=== PATIENT | male | born 1985 | race Two or more races ===

== ENCOUNTER 2021-04-19 03:51 | Emergency (ER) | payer OTHER ==
[2021-04-19] MEDS ORDERED: Bupivacaine 0.5% 10 ML SDV INJECT ONE (04:28)
[2021-04-19] MEDS ORDERED: Lidocaine 1% 10 ML MDV INJECT ONE (04:28)
[2021-04-19] MEDS ORDERED: Lidocaine 1% with EPINEPHrine 1:100,000 20 ML MDV INJECT ONE (04:29)
[2021-04-19] MEDS ORDERED: Penicillin V Potassium 500 MG Tab PO STA (04:31)
--- NOTE | 2021-04-19 04:32 | EDM.PDOC ---
ED HPI GENERAL MEDICAL PROBLEM - General Chief Complaint: ENT Problem Stated Complaint: TOOTH PAIN/HEADACHE Time Seen by Provider: 04/19/21 04:05 Source of Information: Reports: Patient, Other (Friend) History Limitations: Reports: No Limitations - History of Present Illness INITIAL COMMENTS - FREE TEXT/NARRATIVE: Mr. Hung is a very pleasant 35-year-old gentleman who now presents the ED stating that he developed lower right dental pain around 1900 last night. He has not had a fever or oral drainage. No injury to the tooth or jaw. No prior similar symptoms, although he states that the teeth in that area were crowned about 3.5 years ago. He states that he took 500 mg of acetaminophen around 2200 last night. Here in the ED, the patient is found to be hemodynamically stable, afebrile, saturating 100% on room air. He appears to be comfortable, in no acute distress. Prior to last night, the patient denies having a recent fever, chills, sore throat, ear pain, nasal or sinus congestion, cough, dyspnea, chest pain, palpitations, nausea, vomiting, constipation, diarrhea, abdominal pain, urinary symptoms, recent weight gain or weight loss, recent bloody bowel movements or black bowel movements, recent joint aches, headaches, or rashes. The patient's PCP is Clara Hargrove NP. He has received 2 COVID vaccinations, although no influenza vaccination this s adair. Treatments [employer]: Reports: Acetaminophen Right Lower Tooth/Teeth Pain Score (Numeric/FACES): 10 - Related Data Allergies Allergy/AdvReac Type Severity Reaction Status Date / Time No Known Allergies Allergy Verified 04/19/21 04:04 Home Meds: Home Meds Citalopram [Citalopram HBr] 30 mg PO DAILY 04/19/21 [History] Penicillin V Potassium 500 mg PO Q6HR #40 tab 04/19/21 [Rx] Past Medical History Psychiatric History: Reports: Anxiety, Depression - Past Surgical History GI Surgical History: Reports: Appendectomy Social & Family History - Tobacco Use Tobacco Use Status *Q: Never Tobacco User - Alcohol Use Alcohol Use History: Yes Alcohol Use Frequency: Socially - Recreational Drug Use Recreational Drug Use: No - Living Situation & Occupation Living situation: Reports: , with Spouse, with Family (1 child) Occupation: Employed ([employer]) ED ROS ENT - Review of Systems Review Of Systems: Comprehensive ROS is negative, except as noted in HPI. ED EXAM, ENT - Physical Exam Exam: See Below Exam Limited By: No Limitations General Appearance: Alert, WD/WN, No Apparent Distress Eye Exam: Bilateral Eye: EOMI, Normal Inspection Ears: Normal External Exam, Normal Canal, Hearing Grossly Normal, Normal TMs Nose: Normal Inspection, Normal Mucousa, No Blood Mouth/Throat: Normal Inspection, Normal Gums, Normal Lips, Normal Oropharynx, Normal Teeth, Other (Teeth #29 and 30 crowned/capped, with no associated gingival swelling or pointing) Head: Atraumatic, Normocephalic Neck: Normal Inspection, Supple, Non-Tender, Full Range of Motion. No: Lymphadenopathy (L), Lymphadenopathy (R) Course - Vital Signs Last Recorded V/S: Last Vital Signs Temp 36.3 C 04/19/21 04:05 Pulse 74 04/19/21 04:05 Resp 15 04/19/21 04:05 BP 121/78 04/19/21 04:05 Pulse Ox 100 04/19/21 04:05 - Orders/Labs/Meds Meds: Medications Discontinued Medications Generic Name Dose Route Start Last Admin Trade Name Joe PRN Reason Stop Dose Admin Bupivacaine HCl 10 ml 04/19/21 04:28 04/19/21 04:59 Bupivacaine 0.5% 10 Ml Sdv INJECT 04/19/21 04:29 Not Given ONETIME ONE Lidocaine/Epinephrine 20 ml 04/19/21 04:29 04/19/21 04:59 Lidocaine 1% With Epinephrine 1:100,000 20 Ml Mdv INJECT 04/19/21 04:30 Not Given ONETIME ONE Penicillin V Potassium 500 mg 04/19/21 04:31 04/19/21 04:49 Penicillin V Potassium 500 Mg Tab PO 04/19/21 04:32 500 mg ONETIME STA Administration - Re-Assessments/Exams Free Text/Narrative Re-Assessment/Exam: 04/19/21 04:30 Both teeth #29 and 30 are crowned/capped. I see no gingival swelling or pointing to suggest an underlying infection, but I believe it would be prudent to start him on penicillin anyway. To address his pain, I offered to perform an inferior alveolar nerve block, which the patient agreed to. 04/19/21 04:49 The patient changed his mind and decided that he just wanted the penicillin, and not the inferior alveolar nerve block. I will discharge him home with a prescription for penicillin and the recommendation that he take isbl-nhy-awekcca ibuprofen every 8 hours, with food. He states that he already has a list of local dentists, and will endeavor to see a dentist ABDOULAYE. Departure - Departure Time of Disposition: 04:50 Disposition: Home, Self-Care 01 Condition: Good Clinical Impression: Dentalgia - Discharge Information *PRESCRIPTION DRUG MONITORING PROGRAM REVIEWED*: Not Applicable *COPY OF PRESCRIPTION DRUG MONITORING REPORT IN PATIENT TREY: Not Applicable Prescriptions: Penicillin V Potassium 500 mg PO Q6HR #40 tab Referrals: Clara Hargrove, ENDOSCOPY TECH [Nurse Practitioner] - Forms: ED Department Discharge Additional Instructions: You were seen in the emergency room for lower right dental pain since last night. Numbing your right jaw with a dental block was offered, but declined. You have been started on the antibiotic penicillin, and a prescription for penicillin has been sent to the [facility], located just south and across [address] from [facility]. Take 1 tablet of penicillin every 6 hours, as prescribed. Finish the entire prescription unless told otherwise by a dentist. You may take 3 tablets (600 mg) of [id number] ibuprofen up to every 8 hours, with food, as needed for discomfort. Please follow-up with a dentist of your choosing at the next available appointment. If any other problems, please do not hesitate to return to the ER. Sepsis Event Note (ED) - Evaluation Sepsis Screening Result: No Definite Risk
== END 2021-04-19 04:59 | disposition home or self-care (01) ==
LOC: JD.ED 03:51
DX: K08.89 Other specified disorders of teeth and supporting structures (principal)
CPT/HCPCS: 99282; A9270